=== PATIENT | female | born 1940 | race Caucasian/White ===

== ENCOUNTER 2017-05-07 12:20 | Emergency (ER) | payer MEDICARE ==
[~2017-05-07] VITALS: Ht 152.4 cm; Wt 45.0 kg
[~2017-05-07 12:20] MED LIST: AMLODIPINE2.5 MG PO; B-12500 MCG SL; BENTYL20 MG PO; CALCIUM D- OR; CIPROFLOXACIN500 M1 PO; DICYCLOMINE20 MG PO; DONNATA1; DONNATA1 PO; FEOSOL45 MG PO; METRONIDAZOLE500 MG PO; NAPROXEN375 MG PO; NORCO1 TA1 PO; NORVASC2.5 M1 PO; OMEPRAZOLE20 MG PO; PROBIOTIC1 TAB PO; [UNRECOGNIZED DRUG - CODE] OR
[2017-05-07] MEDS ORDERED: NAPROSYN500 MG PO (14:26)
[2017-05-07] MEDS ORDERED: TRAMADOL HYDROC50 MG PO (14:26)
[2017-05-07 14:45] VITALS: BP 144/74
== END 2017-05-07 14:45 | disposition home or self-care (01) ==
LOC: ED 12:20
DX: S32.019A Unspecified fracture of first lumbar vertebra, initial encounter for closed fracture (principal); S22.089A Unspecified fracture of T11-T12 vertebra, initial encounter for closed fracture; W11.XXXA Fall on and from ladder, initial encounter; I10 Essential (primary) hypertension; Y93.H9 Activity, other involving exterior property and land maintenance, building and construction; Y92.008 Other place in unspecified non-institutional (private) residence as the place of occurrence of the external cause

== ENCOUNTER 2018-05-27 06:32 | Day surgery (SDC) | payer MEDICARE ==
[~2018-05-27] VITALS: Ht 152.4 cm; Wt 46.7 kg
[~2018-05-27 06:32] MED LIST changes: +DOCUSATE CAL240 MG PO; +DULCOLAX5 MG PO; +NAPROSYN500 MG PO; +TRAMADOL HYDROC50 MG PO
[2018-05-27 08:52] VITALS: BP 124/72
== END 2018-05-27 09:00 | disposition home or self-care (01) ==
LOC: ENDO 06:32 → ORM 09:45
PROVIDERS: ATTEND Internal Medicine Gastroenterology
PROC: 0DBN8ZX Excision of Sigmoid Colon, Via Natural or Artificial Opening Endoscopic, Diagnostic (ICD-10-PCS; principal; 2018-05-27)
PROC: 0DBE8ZX Excision of Large Intestine, Via Natural or Artificial Opening Endoscopic, Diagnostic (ICD-10-PCS; 2018-05-27)
DX: K59.00 Constipation, unspecified (principal); R19.7 Diarrhea, unspecified; R14.0 Abdominal distension (gaseous); K58.9 Irritable bowel syndrome, unspecified; R19.4 Change in bowel habit; K64.4 Residual hemorrhoidal skin tags; K63.5 Polyp of colon; K64.8 Other hemorrhoids; K57.30 Diverticulosis of large intestine without perforation or abscess without bleeding

== ENCOUNTER → 2018-10-05 | Outpatient (REF) | payer MEDICARE | END | disposition home or self-care (01) | LOC: MAMMO 09:41 | PROVIDERS: ATTEND Nurse Practitioner Family | DX: Z12.31 Encounter for screening mammogram for malignant neoplasm of breast (principal); N95.1 Menopausal and female climacteric states ==

== ENCOUNTER 2021-10-17 09:45 | Emergency (ER) | payer OTHER, MEDICARE ==
[~2021-10-17] VITALS: Ht 152.4 cm; Wt 47.7 kg
[2021-10-17 10:47] LABS: ALBUMIN 4.2 g/dL (3.2-5.0); ALKALINE PHOSPHATASE 67 u/l (38-126); ANION GAP 15 (6-22 (CALC)); BILIRUBIN, TOTAL 0.5 mg/dL (0.0-1.4); BUN 21 mg/dL (8-23); BUN/CREATININE RATIO 35 (12-20 (CALC)); CARBON DIOXIDE 23 mmol/l (22-30); CHLORIDE 107 mmol/l (95-108); CREATININE 0.6 mg/dL (0.5-1.0); GFR > 60 ML/MIN (>=60 (CALC)); GFR FOR AFR.AMER. > 60 ML/MIN (>=60 (CALC)); POTASSIUM 4.1 mmol/l (3.5-5.1); SGOT/AST 46 u/l (9-36); SODIUM 141 mmol/l (137-146); TOTAL PROTEIN 7.4 g/dL (6.3-8.2)
[2021-10-17 10:59] LABS: MYOGLOBIN 239 ng/mL (0 - 62)
[2021-10-17 11:01] LABS: HEMATOCRIT 38.7 % (37.0-47.0); HEMOGLOBIN 11.2 g/dl (12.0-16.0); IMMATURE GRANULOCYTES 0.4 % (0.0-5.0); MEAN CELL VOLUME 81.1 fL CALC (80.0-100.0); MEAN CORPUSCULAR HGB 23.5 pG CALC (26.0-32.0); MEAN CORPUSCULAR HGB CONC 28.9 g/dL CAL (32.0-36.0); NEUT# 10.98 thou/uL (2.00-7.15); RED BLOOD COUNT 4.77 mill/uL (4.20-5.60); RED CELL DISTRI WIDTH 14.7 % (11.5-15.5)
[2021-10-17] MEDS ORDERED: NAPROXEN500 MG PO (13:25)
[2021-10-17 13:32] VITALS: BP 139/72
== END 2021-10-17 13:56 | disposition home or self-care (01) | DRG 103 ==
LOC: ED 09:45
PROVIDERS: Emergency Medicine
DX: R51.9 Headache, unspecified (principal); M54.2 Cervicalgia; V49.50XA Passenger injured in collision with unspecified motor vehicles in traffic accident, initial encounter
CPT/HCPCS: Q9967

== ENCOUNTER 2022-01-17 11:03 | Emergency (ER) | payer MEDICARE ==
[~2022-01-17] VITALS: Ht 152.4 cm; Wt 41.5 kg
[~2022-01-17 11:03] MED LIST changes: +NAPROXEN500 MG PO
[2022-01-17 11:10] VITALS: BP 89/63
[2022-01-17 11:15] VITALS: BP 113/67
[2022-01-17 11:49] VITALS: BP 128/59
[2022-01-17 12:11] LABS: IMMATURE GRANULOCYTES 0.2 % (0.0-5.0); MEAN CORPUSCULAR HGB 24.3 pG CALC (26.0-32.0); MEAN CORPUSCULAR HGB CONC 29.3 g/dL CAL (32.0-36.0); NEUT# 11.32 thou/uL (2.00-7.15); RED BLOOD COUNT 3.7 mill/uL (4.20-5.60); RED CELL DISTRI WIDTH 14.7 % (11.5-15.5)
[2022-01-17 12:23] LABS: INTERNATIONAL NORMALIZED RATIO 0.9 RATIO (0.7-1.3); PROTHROMBIN TIME 9.8 SECONDS (9.0-12.5)
[2022-01-17 12:24] LABS: ALBUMIN 4.3 g/dL (3.2-5.0); CREATININE 1.1 mg/dL (0.5-1.0); POTASSIUM 3.3 mmol/l (3.5-5.1); TOTAL PROTEIN 7.2 g/dL (6.3-8.2)
[2022-01-17 12:49] VITALS: BP 128/59
[2022-01-17 13:14] LABS: HEMATOCRIT 30.7 % (37.0-47.0)
[2022-01-17 13:18] LABS: BILIRUBIN, TOTAL 0.8 mg/dL (0.0-1.4)
== END 2022-01-17 12:51 | disposition short-term general hospital (02) ==
LOC: ED 11:03
PROVIDERS: Family Medicine
DX: I62.01 Nontraumatic acute subdural hemorrhage (principal); R47.81 Slurred speech; G81.94 Hemiplegia, unspecified affecting left nondominant side; G96.08 Other cranial cerebrospinal fluid leak; I10 Essential (primary) hypertension; Z91.81 History of falling; Z20.822 Contact with and (suspected) exposure to COVID-19
CPT/HCPCS: J1953